=== PATIENT | male | born 1945 | race Caucasian/White ===

== ENCOUNTER 2018-09-18 08:30 | Day surgery (SDC) | payer MEDICARE, OTHER, SELFPAY ==
[2018-09-18] MEDS: SODIUM CHLORIDE 0.9% 1,000 ML 200 ML IV (09:25)
--- NOTE | 2018-09-18 10:16 | PM.HP.1 ---
History of Present Illness Date Patient Seen: 09/18/18 Time Patient Seen: 10:16 Chief complaint: 16048 Narrative: Patient here for screening colonoscopy. Last exam was over 10 years ago. 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 Patient History Medical History BPH (benign prostatic hyperplasia) (Chronic) Coronary artery disease (Chronic) Acute lymphoblastic leukemia (ALL) (Resolved) History of atrial fibrillation (Resolved) TTP (thrombotic thrombocytopenic purpura) (Resolved) Surgical History History of laparoscopic cholecystectomy (Resolved) Family & Social History Tobacco & Substance use: Smoked for a brief period but stopped in the 70s Meds Home Medications Medication Instructions Recorded Confirmed Type ASPIRIN (#ASPIRIN E.C.) 325 mg PO Q DAY #0 08/08/11 09/18/18 History TheraTears 3 drp EAR-BOTH DAILY PRN 09/18/18 09/18/18 History atenolol 25 mg PO BEDTIME 09/18/18 09/18/18 History atorvastatin 80 mg PO BEDTIME 09/18/18 09/18/18 History flaxseed oil 1,000 mg PO DAILY 09/18/18 09/18/18 History ibuprofen 200 mg PO BID PRN 09/18/18 09/18/18 History tamsulosin 0.4 mg PO DAILY 09/18/18 09/18/18 History Allergies Allergy/AdvReac Type Severity Reaction Status Date / Time Penicillins Allergy Unknown Unverified 01/24/18 12:08 Review of Systems Review of Systems All systems reviewed & are unremarkable except as noted in HPI and below Cardiovascular Comments: No chest pain related to his cardiac stent Gastrointestinal Comments: Constipation Genitourinary Comments: Enlarged prostate Exam Narrative Exam Narrative: Operative no apparent distress. Lungs are clear. heart regular rate and rhythm no murmur gallop. abdomen is protuberant soft nontender without mass patient is alert and oriented x3 Assessment & Plan Plan: Assessment/Plan Narrative: Patient for a screening colonoscopy. I have discussed the procedure with him. I have discussed the procedure and the rationale with the patient including risks of bleeding, perforation which would necessitate a major operation, failure to find remove all lesions and the potential to tattoo. They appeared to understand and wished to proceed.
--- NOTE | 2018-09-18 10:24 | PM.PREOP ---
Pre-operative Note Interval Note Pre-op Check: Yes History & Physical exam performed today by Physician Changes: No ASA Class (for procedural sedation): III
[2018-09-18] MEDS: fentaNYL 250 MCG/5 ML INJ IV (10:44)
[2018-09-18] MEDS: MIDAZOLAM 5 MG/5 ML VIAL IV (10:44)
--- NOTE | 2018-09-18 10:51 | PM.OP.ENDO ---
Operative Date/Time/Diagnoses Date of procedure: 09/18/18 Time of procedure: 10:52 Pre-op diagnosis: Screening these evaluations last colonoscopy was over 10 years ago Post-op diagnosis: same (A few sigmoid diverticuli noted. Internal hemorrhoids.) Procedure & Clinicians Study performed: Colonoscopy Same procedure as scheduled: Yes Indications: Screening. Patient post stem cell transplant. Surgeon: Don Carrion Procedure Notes SCOAP/Timeout: Perform Procedure in detail: The patient was placed in the left lateral decubitus position and underwent IV sedation directed by the surgeon consisting of fentanyl and Versed. Digital exam was unremarkable. I could not feel his prostate well. The scope was inserted and advanced through the rectum into the sigmoid, descending, transverse, and ascending colon. Pressure was applied we made our way into the cecum. The cecum was reached identified by the ileocecal valve and the appendiceal opening. The scope was gradually brought out. No Polyps were found. The scope ultimately was retroflexed in the rectum. The appearance was remarkable for internal hemorrhoids without ulceration.. The scope was removed and the patient tolerated the procedure well Scope withdrawal time: 7 min Sedation minutes: 25 Findings: diverticulosis and internal hemorrhoids Recommendations: Colonscopy in 5 years (Due to stem cell transplant) Plan for aftercare: Follow-up as needed Follow up: as needed Disposition: PACU
--- NOTE | 2018-09-18 10:55 | P.OP.ENDO_ITS ---
Operative Date/Time/Diagnoses Date of procedure: 09/18/18 Time of procedure: 10:52 Pre-op diagnosis: Screening these evaluations last colonoscopy was over 10 years ago Post-op diagnosis: same (A few sigmoid diverticuli noted. Internal hemorrhoids. ) Procedure & Clinicians Study performed: Colonoscopy Same procedure as scheduled: Yes Indications: Screening. Patient post stem cell transplant. Surgeon: Don Carrion Procedure Notes SCOAP/Timeout: Perform Procedure in detail: The patient was placed in the left lateral decubitus position and underwent IV sedation directed by the surgeon consisting of fentanyl and Versed. Digital exam was unremarkable. I could not feel his prostate well. The scope was inserted and advanced through the rectum into the sigmoid, descending, transverse, and ascending colon. Pressure was applied we made our way into the cecum. The cecum was reached identified by the ileocecal valve and the appendiceal opening. The scope was gradually brought out. No Polyps were found. The scope ultimately was retroflexed in the rectum. The appearance was remarkable for internal hemorrhoids without ulceration.. The scope was removed and the patient tolerated the procedure well Scope withdrawal time: 7 min Sedation minutes: 25 Findings: diverticulosis and internal hemorrhoids Recommendations: Colonscopy in 5 years (Due to stem cell transplant) Plan for aftercare: Follow-up as needed Follow up: as needed Disposition: PACU
[2018-09-18 10:59] VITALS: BP 104/60; PULSE 66; RESP 15; TEMP 36.3; O2SAT 99
== END 2018-09-18 11:40 | disposition home or self-care (01) ==
PROVIDERS: Family Provider Physician Assistant; PCP Physician Assistant; Visit Provider Specialist
PROC: 0DJD8ZZ Inspection of Lower Intestinal Tract, Via Natural or Artificial Opening Endoscopic (ICD-10-PCS; CPT 45378; principal; 2018-09-18 09:45)
DX: Z12.11 Encounter for screening for malignant neoplasm of colon (principal); K57.30 Diverticulosis of large intestine without perforation or abscess without bleeding; K64.8 Other hemorrhoids; N40.0 Benign prostatic hyperplasia without lower urinary tract symptoms; I25.10 Atherosclerotic heart disease of native coronary artery without angina pectoris
CPT/HCPCS: G0121; 99152; 99153; J2250; J3010

== ENCOUNTER → 2019-03-08 13:27 | Outpatient (CLI) | payer MEDICARE, OTHER, SELFPAY ==
--- NOTE | 2019-03-08 | DI.CT.S_ITS ---
PROCEDURE: CT SOFT TISSUE NECK W CON INDICATIONS: SUPRACLAVICULAR MASS TECHNIQUE: After the administration of intravenous contrast, 3.0 mm axial sections acquired from the sella to the aortic arch. Additional oblique axial 3.0 mm sections acquired through the pharynx. 3 mm thick coronal and sagittal reformats were generated. For radiation dose reduction, the following was used: automated exposure control. COMPARISON: None. FINDINGS: Image quality: Excellent. Lymph nodes: No enlarged lymph nodes seen throughout the neck. Vessels: Visualized vasculature appears patent. The mild left carotid bulb calcification and minor right. Neck spaces: The oropharynx, nasopharynx, and pharynx demonstrate no mucosal lesions. The vocal cords, false vocal cords, pyriform sinuses, epiglottis, vallecula, and tongue base all appear normal. Extramucosal spaces appear unremarkable. Glands: The parotid and submandibular glands appear normal. Thyroid gland is normal. Miscellaneous: Protruding upward and medial from the right sternoclavicular joint, there is a multilobulated, smoothly marginated cystic mass with mild complexity and a few punctate internal calcifications. This measures approximately 3.6 x 3.6 x 2.7 cm. It does not demonstrate significant internal enhancement and does not have a discrete connection to adjacent vascularity. This is immediately underlying and elevating the distal attachment of the sternoclavicular muscle. There are moderate expected subcortical cystic degenerative changes and cortical irregularity, but no obvious cortical destruction or periostitis in the adjacent manubrium or clavicular heads. No significant asymmetric widening of either sternoclavicular joint. Visualized brain and orbits appear normal. Lung apices demonstrate geographic scattered areas of relative lucency indicative of air trapping. Superficial soft tissues appear normal. Bones: No suspicious bony lesions. Visualized sinuses and mastoids appear unremarkable. IMPRESSION: 1. 3.6 cm cystic mass likely arises from the right sternoclavicular joint and is most likely a complicated ganglion secondary to the sternoclavicular joint degeneration. A cystic neoplasm is less likely but not entirely excluded. Ultrasound for further evaluation of internal architecture and vascularity s recommended. 2. No adjacent osseous destruction or adenopathy to indicate an aggressive lesion. Dictated by: Lilia Gray M.D. on 03/08/2019 at 14:55 Approved by: Lilia Gray M.D. on 03/08/2019 at 15:06
--- NOTE | 2019-03-08 | DI.CT.S_ITS ---
PROCEDURE: CT CHEST W CON INDICATIONS: SUPRACLAVICULAR MASS TECHNIQUE: After the administration of intravenous contrast, 5 mm thick sections acquired from the pulmonary apices to the posterior costophrenic angles. 7 mm thick coronal and sagittal MIP reformats were acquired. For radiation dose reduction, the following was used: automated exposure control, adjustment of mA and/or kV according to patient size. COMPARISON: None. FINDINGS: Image quality: Excellent. Lungs and pleura: No acute air space opacities. No pleural effusions or pneumothorax. Central and peripheral airways are patent and normal in caliber. Mediastinum: Heart size is normal. Heavy coronary artery calcification versus stenting. Mild aortic valvular and mitral annular calcification. No pericardial effusion. No mediastinal or hilar adenopathy by size criteria. Thoracic aorta and central pulmonary arteries are normal in size. Esophagus is normal in caliber. No hiatal hernia. Bones and chest wall: No suspicious bony lesions. A stable bone island in T6. No vertebral body compression fractures. No axillary or supraclavicular adenopathy by size criteria. Thyroid gland is normal. There is a cystic mass superior and medial to the right sternoclavicular joint as detailed in the accompanying neck CT report.. Abdomen: Visualized upper abdominal solid organs demonstrate large bilateral renal cysts and cholecystectomy changes.. Upper abdominal bowel loops are normal in caliber. IMPRESSION: 1. Cystic mass in the sternal much is detailed in the accompanying CT neck report. 2. No acute cardiopulmonary disease by CT scan. No adenopathy in the chest to indicate an aggressive lesion. 3. Incidental not made of bilateral renal cysts and cholecystectomy change. Dictated by: Lilia Gray M.D. on 03/08/2019 at 15:06 Approved by: Lilia Gray M.D. on 03/08/2019 at 15:12
== END ==
PROVIDERS: PCP Internal Medicine; Visit Provider Internal Medicine
DX: R22.1 Localized swelling, mass and lump, neck (principal); R22.2 Localized swelling, mass and lump, trunk; N28.1 Cyst of kidney, acquired
CPT/HCPCS: 70491; 71260; Q9967

== ENCOUNTER → 2019-03-21 11:02 | Outpatient (CLI) | payer MEDICARE, OTHER, SELFPAY ==
--- NOTE | 2019-03-21 | DI.US.S_ITS ---
PROCEDURE: US SOFT TISSUE HEAD AND NECK INDICATIONS: PALP LUMP LOWER RT NECK TECHNIQUE: Real-time scanning was performed of the neck region of interest, with image documentation. COMPARISON: [facility], CT, CT SOFT TISSUE NECK W CON, 03/08/2019, 13:45. FINDINGS: Solid, avascular mass is present corresponding to the palpable abnormality within the right inferior neck measuring 2.9 x 3.3 x 3.8 cm. IMPRESSION: Solid heterogeneous mass as was seen on recent CT. Underlying neoplasm cannot be excluded. If indicated sonographically directed core biopsy could be performed. Dictated by: John SULLIVAN Interpreted: Eve Dominguez MD on 03/21/2019 at 11:37 Approved by: Eve Dominguez M.D. on 03/21/2019 at 14:46
== END ==
PROVIDERS: PCP Internal Medicine; Visit Provider Internal Medicine
DX: R22.1 Localized swelling, mass and lump, neck (principal)
CPT/HCPCS: 76536

== ENCOUNTER 2020-05-09 09:41 | Emergency (ER) | payer MEDICARE, OTHER, SELFPAY ==
[2020-05-09 09:48] VITALS: BP 136/74; PULSE 67; RESP 15; TEMP 36.7; O2SAT 100; BMI 39.1
--- NOTE | 2020-05-09 10:25 | ED_ITS ---
HPI - Fever General Chief Complaint: Fever Stated Complaint: Temp this morning 100 w/chills septus history Time Seen by Provider: 05/09/20 10:03 Source: patient Mode of arrival: Ambulatory Limitations: no limitations History of Present Illness HPI Narrative: CC: Fever HPI: The patient is a 75-year-old male who has had a past history of sepsis from a cellulitis. The patient states that he has had an elevated temperature and has just not been feeling good he has felt sick and ill. He called his family doctor who advised him to come into the emergency department to be evaluated. The patient states that he has had pain in his right lower leg and it has become red and warm. He denies that he has ever had deep vein thrombophlebitis or pulmonary embolism. He denies having [place] it or or being exposed to [place] it. He has had intermittent sweats and chills. He complains that he has had fever of with a mild headache. He has had nasal drainage but no sore throat or dysphagia. He denies any cough shortness of breath or chest pain. He has periodically felt lightheaded. He denies any abdominal pain nause a vomiting diarrhea or dysuria. His pain and discomfort is 5 to 7/10 in intensity. He complains that he is having right calf pain. He is a former very heavy smoker. He used to work on a tugboat. He drinks alcohol but does not chew tobacco or use any drugs. He denies a history of diabetes mellitus has a history of hypertension denies myocardial infarction COPD or asthma. He has an allergy to penicillin. Related Data Home Medications Medication Instructions Recorded Confirmed ASPIRIN (#ASPIRIN E.C.) 325 mg PO Q DAY #0 08/08/11 09/18/18 TheraTears 3 drp EAR-BOTH DAILY PRN 09/18/18 09/18/18 atenolol 25 mg PO BEDTIME 09/18/18 09/18/18 atorvastatin 80 mg PO BEDTIME 09/18/18 09/18/18 flaxseed oil 1,000 mg PO DAILY 09/18/18 09/18/18 ibuprofen 200 mg PO BID PRN 09/18/18 09/18/18 tamsulosin 0.4 mg PO DAILY 09/18/18 09/18/18 Previous Rx's Medication Instructions Recorded doxycycline hyclate 100 mg PO BID #20 tab 05/09/20 hydrocodone-acetaminophen [[place]] 1 tab PO Q6H PRN #12 tab 05/09/20 ibuprofen 600 mg PO QID PRN #20 tab 05/09/20 Allergies Allergy/AdvReac Type Severity Reaction Status Date / Time Penicillins Allergy Unknown Verified 05/09/20 09:54 Review of Systems Review of Systems Narrative: The patient's review of systems were all negative except for those mentioned in the history of present Patient History Medical History Acute lymphoblastic leukemia (ALL) (Resolved) BPH (benign prostatic hyperplasia) (Chronic) Coronary artery disease (Chronic) History of atrial fibrillation (Resolved) TTP (thrombotic thrombocytopenic purpura) (Resolved) Surgical History History of laparoscopic cholecystectomy (Resolved) Social History household members: spouse Smoking Status: Unknown if ever smoked Smoking Status: Unknown if ever smoked alcohol intake frequency: a few times a week Alcohol type: hard liquor Substance Use Type: does not use Exam Narrative Exam Narrative: PHYSICAL EXAM: CONSTITUTIONAL: Awake, Alert, Oriented, Coherent, Cooperative in NAD. Does not appear toxic or ill. HEAD: AT/NC EENT: PERRL, FROM of eyes, no icterus . MOUTH:Oral mucosa is moist and pink, posterior pharynx is without erythema or exudate. NECK: Supple, no obvious JVD, Trachea is midline without stridor, no palpable LN. SPINE: Palpation of the cervical, Thoracic, Lumbar or Sacral spine reveals no gross deformity or tenderness. No CVA tenderness. THORAX: No deformity, retractions, chest wall tenderness. LUNGS: Clear, symmetrical breath sounds without respiratory distress. HEART: Normal heart tones, regular rhythm and rate without murmur. ABDOMEN: Soft, non-tender, normal bowel sounds without guarding, rebound, rigidity or palpable mass. EXTREMITIES: The patient's right leg is mildly tender. The patient's anterior right leg just distal to the knee and above the ankle her is mildly eduardo thematous/pain could warm and tender. The posterior calf is very tender to palpation. SKIN: No other rash, bruising, petechiae or purpura. NEURO: Awake, alert, oriented, conversive, cranial nerves II-XII are symmetrical , moves all 4 extremities . MENTAL HEALTH: Does not appear anxious or depressed. Initial Vital Signs Initial Vital Signs: Vital Signs Temperature 98.0 F 05/09/20 09:48 Pulse Rate 67 05/09/20 09:48 Respiratory Rate 15 05/09/20 09:48 Blood Pressure 136/74 05/09/20 09:48 Pulse Oximetry 100 05/09/20 09:48 Course Course Course Narrative: The sample prep technician stated that the patient's calf was very tender to palpation but was negative for any deep vein thrombophlebitis or Dominguez cyst. Orders Ordered: ED Orders 05/09/20 10:10 Complete Blood Count AUTO DIFF Stat Comprehensive Metabolic Panel Stat Erythrocyte Sedimentation Rate Stat Lactate (Lactic Acid) Stat 05/09/20 10:26 US periph venous low extrem rt Stat XR chest 1V Stat 05/09/20 12:45 Blood Culture Stat Discontinued Medications Doxycycline Hyclate (Vibramycin) 100 mg PO NOW ONE Stop: 05/09/20 12:12 Last Admin: 05/09/20 12:24 Dose: 100 mg Documented by: BILLY Sodium Chloride (Normal Saline 0.9%) 1,000 mls @ 1,000 mls/hr IV BOLUS ONE Stop: 05/09/20 11:25 Last Infusion: 05/09/20 12:02 Dose: 0 mls/hr Documented by: Admin: 05/09/20 10:39 Dose: 1,000 mls/hr Documented by: BILLY Vancomycin HCl/Dextrose (Vancomycin) 1,500 mg in 300 mls @ 200 mls/hr IV Q24H JIL Last Infusion: 05/09/20 14:12 Dose: 0 mls/hr Documented by: Admin: 05/09/20 12:23 Dose: 200 mls/hr Documented by: BILLY Ketorolac Tromethamine (Toradol) 15 mg IV NOW ONE Stop: 05/09/20 10:27 Last Admin: 05/09/20 10:39 Dose: 15 mg Documented by: BILLY Vital Signs Vital signs: Vital Signs - 8 hr 05/09/20 12:45 05/09/20 12:46 05/09/20 13:56 Pulse Rate 57 L 56 L 53 L Respiratory Rate 12 Blood Pressure 134/81 124/73 Pulse Oximetry 98 97 98 05/09/20 14:18 Pulse Rate 54 L Respiratory Rate Blood Pressure 123/66 Pulse Oximetry 96 MDM - Fever Medical Records Attestation: I reviewed the patient's medical records. Lab Data Attestation: I reviewed the patient's lab results. Result diagrams: 05/09/20 10:10 05/09/20 10:10 Labs: Lab Results 05/09/20 05/09/20 05/09/20 Range/Units 10:10 10:10 10:10 WBC 9.1 (4.5-11.0) X10^3/uL RBC 4.26 L (4.5-5.9) X10^6/uL Hgb 13.6 (13.5-17.5) g/dL Hct 40.6 L (41-53) % MCV 95.2 (80-100) fL MCH 32.0 (26-34) PG MCHC 33.6 (30-36) % RDW 13.9 (11.6-14.8) % Plt Count 151 (150-400) X10^3/uL Neut % (Auto) 67.8 (50-75) % Lymph % (Auto) 25.5 (25-40) % [place] % (Auto) 6.0 (3-14) % Eos % (Auto) 0.5 L (2-4) % Baso % (Auto) 0.2 (0-2) % Neut # (Auto) 6200 (8891-5556) /uL Lymph # (Auto) 2300 (5355-5537) /uL [place] # (Auto) 500 (0-900) /uL Eos # (Auto) 0 (0-450) /uL Baso # (Auto) 0 (0-100) /uL ESR 13 (0-15) MM/HR Sodium 138 (137-145) mmol/L Potassium 4.0 (3.4-5.1) mmol/L Chloride 105 (98-107) mmol/L Carbon Dioxide 29 (22-32) mmol/L BUN 23 H (9-20) mg/dL Creatinine 1.03 (0.66-1.25) mg/dL Estimated GFR > 60.0 (>60) mL/min BUN/Creatinine Ratio 22.3 H (6-22) Glucose 94 (80-110) mg/dL Lactate 0.7 (0.7-2.1) mmol/L Calcium 9.6 (8.4-10.2) mg/dL Total Bilirubin 1.1 (0.2-1.3) mg/dL AST 21 (17-59) IU/L ALT 19 (<50) IU/L Alkaline Phosphatase 43 (38-126) U/L Total Protein 6.5 (6.3-8.2) g/dL Albumin 4.0 (3.5-5.0) g/dL Globulin 2.5 (1.7-4.1) g/dL Albumin/Globulin Ratio 1.6 (1.0-2.8) COVID-19 PCR (Negative) 05/09/20 Range/Units 10:48 WBC (4.5-11.0) X10^3/uL RBC (4.5-5.9) X10^6/uL Hgb (13.5-17.5) g/dL Hct (41-53) % MCV (80-100) fL MCH (26-34) PG MCHC (30-36) % RDW (11.6-14.8) % Plt Count (150-400) X10^3/uL Neut % (Auto) (50-75) % Lymph % (Auto) (25-40) % [place] % (Auto) (3-14) % Eos % (Auto) (2-4) % Baso % (Auto) (0-2) % Neut # (Auto) (5832-5325) /uL Lymph # (Auto) (1837-4919) /uL [place] # (Auto) (0-900) /uL Eos # (Auto) (0-450) /uL Baso # (Auto) (0-100) /uL ESR (0-15) MM/HR Sodium (137-145) mmol/L Potassium (3.4-5.1) mmol/L Chloride (98-107) mmol/L Carbon Dioxide (22-32) mmol/L BUN (9-20) mg/dL Creatinine (0.66-1.25) mg/dL Estimated GFR (>60) mL/min BUN/Creatinine Ratio (6-22) Glucose (80-110) mg/dL Lactate (0.7-2.1) mmol/L Calcium (8.4-10.2) mg/dL Total Bilirubin (0.2-1.3) mg/dL AST (17-59) IU/L ALT (<50) IU/L Alkaline Phosphatase (38-126) U/L Total Protein (6.3-8.2) g/dL Albumin (3.5-5.0) g/dL Globulin (1.7-4.1) g/dL Albumin/Globulin Ratio (1.0-2.8) COVID-19 PCR Negative (Negative) Urine Dip Bedside Urine Glucose Negative Bedside Urine Bilirubin - Negative Bedside Urine Ketone - Negative Urine Specific Fitzgerald 1.025 Bedside Urine Occult Blood - Negative Bedside Urine pH 6.0 Bedside Urine Protein - Negative Bedside Urine Urobilinogen - Negative Bedside Urine Nitrite - Negative Bedside Urine Leukocytes - Negative Esterase Discharge Plan Departure Patient Disposition: Home Clinical Impression: Cellulitis Qualifiers: Site of cellulitis: extremity Site of cellulitis of extremity: lower extremity Laterality: right Qualified Code(s): L03.115 - Cellulitis of right lower limb Discharge Date/Time: 05/09/20 14:19 Instructions: DI for Cellulitis -- Adult, DI for Fever (Symptom) -- Adult Activity Restrictions/Additional Instructions: 1. Your laboratory tests reveal that you do not have sepsis. Your ultrasound reveals that she do not have deep vein thrombophlebitis. You do have cellulit is of your right leg. 2. You need to be seen and re-evaluated by your primary care physician within 48-72 hours. 3. You need to be drinking 2-3 L of fluid per day to keep yourself hydrated. 4. For pain and discomfort you can take ibuprofen 600 mg every 6 hours for pain and discomfort. For severe pain as a rescue medication you can take [place] 5/325 every 6 hours. 5. Or the infection you can take doxycycline 100 mg twice a day 6. Apply warm compresses to your leg arm every 2 hours while awake for 20-30 minutes as tolerated. 7. You need to return to the emergency department if you develop worsening pain worsening high fever uncontrolled nausea and vomiting, profuse diarrhea, dizziness feeling faint or passing-out. Prescriptions: New ibuprofen 600 mg tablet 600 mg PO QID PRN (Reason: fever or pain) Qty: 20 RF: 0 hydrocodone-acetaminophen [[place]] 5-325 mg tablet 1 tab PO Q6H PRN (Reason: pain) Qty: 12 RF: 0 doxycycline hyclate 100 mg tablet 100 mg PO BID Qty: 20 RF: 0 No Action ASPIRIN (#ASPIRIN E.C.) 325 mg PO Q DAY Qty: 0 RF: 0 atenolol 25 mg PO BEDTIME RF: 0 atorvastatin 80 mg PO BEDTIME RF: 0 ibuprofen 200 mg PO BID PRN (Reason: Pain (Scale Score 4-6)) RF: 0 tamsulosin 0.4 mg PO DAILY RF: 0 TheraTears 3 drp EAR-BOTH DAILY PRN (Reason: Dry Eyes) RF: 0 flaxseed oil 1,000 mg PO DAILY RF: 0 Referrals: Lillian Deleon MD [Primary Care Provider] -
--- NOTE | 2020-05-09 10:26 | DI.RAD.S_ITS ---
PROCEDURE: XR CHEST 1V INDICATIONS: Fever TECHNIQUE: One view of the chest was acquired. COMPARISON: [facility], , CHEST 1 VIEW, 04/06/2015, 16:55. FINDINGS: Surgical changes and devices: There is moderate left and mild right bibasilar airspace opacity. Lungs and pleura: Lungs are clear. No pleural effusions or pneumothorax. Mediastinum: Mediastinal contours appear normal. Heart size is enlarged. Bones and chest wall: No suspicious bony lesions. Overlying soft tissues appear unremarkable. IMPRESSION: Bibasilar pneumonia. Continued plain film surveillance is recommended to ensure resolution, and to exclude underlying or central malignancy. Dictated by: Reji Hawkins M.D. on 05/09/2020 at 9:58 Approved by: Reji Hawkins M.D. on 05/09/2020 at 9:59
--- NOTE | 2020-05-09 10:26 | DI.US.S_ITS ---
PROCEDURE: US PERIPH VENOUS LOW EXTREM RT INDICATIONS: PAINFUL RIGHT LEG, R/O DVT TECHNIQUE: Real-time imaging, as well as color and pulse Doppler interrogation, were performed of the lower extremity deep veins from the inguinal ligament to the popliteal fossa. COMPARISON: None. FINDINGS: The common femoral, femoral and popliteal veins are normally compressible, and free of intraluminal thrombus. Color and pulse Doppler demonstrate normal phasic intraluminal flow. There is normal augmentation response to distal compression maneuver. Ill-defined hypoechogenicity within the superficial soft tissues. IMPRESSION: No evidence of right lower extremity DVT. Right lower extremity edema. Dictated by: Reji Hawkins M.D. on 05/09/2020 at 10:51 Approved by: Reji Hawkins M.D. on 05/09/2020 at 10:52
[2020-05-09 10:38] LABS: Add Manual Diff / Slide Review NO; Basophils Absolute Auto 0 /uL (0-100); Basophils Percent Auto 0.2 % (0-2); Eosinophils Absolute Auto 0 /uL (0-450); Eosinophils Percent Auto 0.5 % (2-4); Hematocrit 40.6 % (41-53); Hemoglobin 13.6 g/dL (13.5-17.5); Lymphocytes Absolute Auto 2300 /uL (1100-4500); Lymphocytes Percent Auto 25.5 % (25-40); Mean Corpuscular HGB Conc 33.6 % (30-36); Mean Corpuscular Volume 95.2 fL (80-100); Monocytes Absolute Auto 500 /uL (0-900); Neutrophils Absolute Auto 6200 /uL (1500-7000); Neutrophils Percent Auto 67.8 % (50-75); Platelet Count 151 X10^3/uL (150-400); Red Blood Cell Count 4.26 X10^6/uL (4.5-5.9); Red Cell Distribution Width 13.9 % (11.6-14.8); White Blood Cell Count 9.1 X10^3/uL (4.5-11.0)
[2020-05-09] MEDS: SODIUM CHLORIDE 0.9% 1,000 ML 1000 ML IV (10:39)
[2020-05-09] MEDS: KETOROLAC 60 MG/2 ML VIAL 15 MG IV (10:39)
[2020-05-09 10:48] LABS: Alanine Aminotransferase 19 IU/L (<50); Albumin Globulin Ratio 1.6 (1.0-2.8); Alkaline Phosphatase 43 U/L (38-126); Aspartate Aminotransferase 21 IU/L (17-59); BUN Creatinine Ratio 22.3 (6-22); Bilirubin Total 1.1 mg/dL (0.2-1.3); Blood Urea Nitrogen 23 mg/dL (9-20); Calcium 9.6 mg/dL (8.4-10.2); Carbon Dioxide 29 mmol/L (22-32); Chloride 105 mmol/L (98-107); Estimated Glomerular Filt Rate > 60.0 mL/min (>60); Globulin 2.5 g/dL (1.7-4.1); Glucose 94 mg/dL (80-110); HEMOLYSIS < 15 (0-50); Lactate (Lactic Acid) 0.7 mmol/L (0.7-2.1); Sodium 138 mmol/L (137-145); Total Protein 6.5 g/dL (6.3-8.2)
[2020-05-09 11:13] LABS: Erythrocyte Sedimentation Rate 13 MM/HR (0-15)
[2020-05-09 11:56] LABS: COVID19 -Nasal RAPID Negative (Negative)
[2020-05-09] MEDS: VANCOMYCIN 1,500 MG/300 ML FROZ.PIGGY 200 MG IV (12:23)
[2020-05-09] MEDS: DOXYCYCLINE HYCLATE 100 MG TABLET PO (12:24)
[2020-05-09 12:45] VITALS: PULSE 57; O2SAT 98
[2020-05-09 12:46] VITALS: BP 134/81; PULSE 56; O2SAT 97
[2020-05-09 13:56] VITALS: BP 124/73; PULSE 53; RESP 12; O2SAT 98
[2020-05-09 14:18] VITALS: BP 123/66; PULSE 54; O2SAT 96
== END 2020-05-09 14:19 | disposition home or self-care (01) ==
PROVIDERS: Emergency Provider Emergency Medicine; PCP Internal Medicine
DX: L03.115 Cellulitis of right lower limb (principal); R51 Headache; M79.661 Pain in right lower leg; R50.9 Fever, unspecified
CPT/HCPCS: 36415; 71045; 80053; 81003; 83605; 85025; 85651; 87040; 87635; 93971; 96361; 96365; 96366; 96375; 99284; 99285; J1885

== ENCOUNTER → 2020-08-08 11:06 | Outpatient (CLI) | payer MEDICARE, OTHER, SELFPAY ==
[2020-08-10 02:02] LABS: COVID19 Sendout Not Detected (Not Detect)
== END ==
PROVIDERS: PCP Internal Medicine; Visit Provider Student in an Organized Health Care Education/Training Program
DX: Z11.59 Encounter for screening for other viral diseases (principal)
CPT/HCPCS: 87635

== ENCOUNTER → 2023-11-28 10:55 | Outpatient (CLI) | payer OTHER, SELFPAY ==
--- NOTE | 2023-11-28 10:59 | DI.RAD.S_ITS ---
PROCEDURE: XR CHEST 2V INDICATIONS: COUGH TECHNIQUE: 2 views of the chest were acquired. COMPARISON: [facility], CR, XR CHEST 1V, 05/09/2020, 10:39. FINDINGS: Surgical changes and devices: None. Lungs and pleura: Linear left basilar opacity likely atelectasis. No pleural effusions or pneumothorax. Mediastinum: Mediastinal contours are normal. Heart size is enlarged. Bones and chest wall: No suspicious bony abnormalities. Soft tissues appear unremarkable. IMPRESSION: No acute cardiopulmonary abnormality is seen. Dictated by: Eve Dominguez M.D. on 11/28/2023 at 14:35 Approved by: Eve Dominguez M.D. on 11/28/2023 at 14:36
== END ==
PROVIDERS: PCP Student in an Organized Health Care Education/Training Program; Referring Provider Physician Assistant; Visit Provider Physician Assistant
DX: R05.9 Cough, unspecified (principal)
CPT/HCPCS: 71046